=== PATIENT | male | born 1985 | race Caucasian/White ===

== ENCOUNTER 2019-07-24 10:48 | Outpatient (RCR) | payer BC ==
[2019-07-24 13:40] LABS: SEMEN VOLUME 2.9 ML (1.5-5.0)
== END 2019-10-22 | disposition home or self-care (01) ==
LOC: LAB 10:48
PROVIDERS: ATTEND Obstetrics & Gynecology
DX: N46.8 Other male infertility (principal)
CPT/HCPCS: 89320